=== PATIENT | female | born 1980 | race Hispanic/Latino ===

== ENCOUNTER 2024-12-12 20:03 | Emergency (ER) | payer SELFPAY ==
[~2024-12-12] VITALS: Ht 149.9 cm; Wt 45.4 kg
[2024-12-12 20:11] VITALS: PULSE 99; RESP 24; TEMP 98.7
[2024-12-12 21:00] LABS: AMPHETAMINES SCREEN,URINE NEGATIVE (NEGATIVE); BENZODIAZEPINES SCREEN,URINE POSITIVE (NEGATIVE); CANNABINOIDS SCREEN,URINE POSITIVE (NEGATIVE); COCAINE SCREEN,URINE NEGATIVE (NEGATIVE); METHADONE SCREEN, URINE NEGATIVE (NEGATIVE); OPIATES SCREEN,URINE NEGATIVE (NEGATIVE); PHENCYCLIDINE SCREEN,URINE NEGATIVE (NEGATIVE); PREGNANCY TEST, URINE NEGATIVE (NEGATIVE)
[2024-12-12 22:12] VITALS: BP 113/83; O2SAT 100
[2024-12-12] MEDS ORDERED: DEXTROSE 50% SYRINGE 50 ML IV ONE (22:20)
== END 2024-12-12 22:12 | disposition home or self-care (01) ==
LOC: ER 20:07
DX: M79.672 Pain in left foot (principal); M79.652 Pain in left thigh; W22.8XXA Striking against or struck by other objects, initial encounter; Y92.512 Supermarket, store or market as the place of occurrence of the external cause
CPT/HCPCS: 73552; 73590; 73630; 80307; 81025; 99283; J7799